=== PATIENT | male | born 1950 | race Caucasian/White ===

== ENCOUNTER 2017-06-20 09:20 | Day surgery (SDC) | payer MEDICARE, OTHER ==
[~2017-06-20 09:20] MED LIST: Lactated Ringers 1,000 ML IV SCH; Lidocaine 1% 4 ML ONE; Lidocaine 1%/Sod Bicarbonate in NS 8.4% 1 ML Syringe IDERM PRN; Propofol 200 MG/20 ML SDV ONE; Sodium Chloride 0.9% 10 ML Syringe FLUSH PRN
--- NOTE | 2017-06-20 09:32 | PCM.PREANE ---
Preanesthetic Assessment - Anesthesia/Transfusion/Family Hx Anesthesia History: Prior Anesthesia Without Reaction Family History of Anesthesia Reaction: No Transfusion History: No Prior Transfusion(s) Intubation History: Unknown - Review of Systems General: No Symptoms Pulmonary: No Symptoms Cardiovascular: No Symptoms Gastrointestinal: No Symptoms (GERD on occasion.) Neurological: No Symptoms (History of vertigo), Numbness (right chronic numbness on right foot (bottom)) Other: Reports: Sinus Problem (Allergic rhinitis) - Physical Assessment NPO Status Date: 06/19/17 NPO Status Time: 23:00 Pulse: 62 O2 Sat by Pulse Oximetry: 97 Respiratory Rate: 16 Blood Pressure: 128/82 Temperature: 36.7 C Height: 1.91 m Weight: 89.811 kg ASA Class: 1 Mental Status: Alert & Oriented x3 Airway Class: Mallampati = 3 Dentition: Reports: Implants (front/top), Caries Thyro-Mental Finger Breadths: 3 Mouth Opening Finger Breadths: 3 ROM/Head Extension: Full Lungs: Clear to Auscultation, Normal Respiratory Effort Cardiovascular: Regular Rate, Regular Rhythm, No Murmurs - Allergies Allergies/Adverse Reactions: Allergies Allergy/AdvReac Type Severity Reaction Status Date / Time No Known Allergies Allergy Verified 06/19/17 13:22 - Anesthesia Plan Pre-Op Medication Ordered: None - Acknowledgements Anesthesia Type Planned: MAC Pt an Appropriate Candidate for the Planned Anesthesia: Yes Alternatives and Risks of Anesthesia Discussed w Pt/Guardian: Yes Pt/Guardian Understands and Agrees with Anesthesia Plan: Yes PreAnesthesia Questionnaire HEENT History: Reports: Allergic Rhinitis, Impaired Vision, Other (See Below) Other HEENT History: wears glasses, cerumen impaction Cardiovascular History: Reports: None Respiratory History: Reports: None Gastrointestinal History: Genitourinary History: Reports: None 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 Musculoskeletal History: Reports: None Neurological History: Reports: None Psychiatric History: Reports: None Endocrine/Metabolic History: Reports: None Hematologic History: Reports: None Immunologic History: Reports: None Oncologic (Cancer) History: Reports: None Dermatologic History: Reports: None - Past Surgical History Head Surgeries/Procedures: Reports: None Cardiovascular Surgical History: Reports: None Respiratory Surgical History: Reports: None GI Surgical History: Reports: Colonoscopy, Hernia, Inguinal Female Surgical History: Reports: None Male Surgical History: Reports: Vasectomy Endocrine Surgical History: Reports: None Neurological Surgical History: Reports: None Musculoskeletal Surgical History: Reports: None Dermatological Surgical History: Reports: None - SUBSTANCE USE Smoking Status *Q: Former Smoker Recreational Drug Use History: No - HOME MEDS Home Medications: Home Meds Loratadine [Claritin] 10 mg PO DAILY PRN 06/19/17 [History] - CURRENT (IN HOUSE) MEDS Current Meds: Current Medications Lactated Ringer's (Ringers, Lactated) 1,000 mls @ 125 mls/hr IV ASDIRECTED PHOEBE Stop: 06/20/17 23:00 Lidocaine/Sodium Bicarbonate (Buffered Lidocaine 1% In Ns 8.4%) 0.25 ml IDERM ONETIME PRN PRN Reason: Prior to IV Start Stop: 06/20/17 18:00 Sodium Chloride (Saline Flush) 10 ml FLUSH ASDIRECTED PRN PRN Reason: Keep Vein Open Stop: 06/20/17 18:00 Discontinued Medications Lidocaine HCl (Xylocaine-Mpf 1%) Confirm Administered Dose 4 mls @ as directed .ROUTE .STK-MED ONE Stop: 06/20/17 08:53 Propofol (Diprivan 20 Ml) Confirm Administered Dose 400 mg .ROUTE .STK-MED ONE Stop: 06/20/17 08:54
--- NOTE | 2017-06-20 10:35 | PCM48HPAN ---
Post Anesthesia Note - EVALUATION WITHIN 48HRS OF ANESTHETIC Vital Signs in Normal Range: Yes Patient Participated in Evaluation: Yes Respiratory Function Stable: Yes Airway Patent: Yes Cardiovascular Function Stable: Yes Hydration Status Stable: Yes Pain Control Satisfactory: Yes Nausea and Vomiting Control Satisfactory: Yes Mental Status Recovered: Yes Pulse Rate: 61 SaO2: 97 Resp Rate: 16 Temperature: 36.3 C Blood Pressure: 96/71
--- NOTE | 2017-06-20 10:44 | PCM.OPNOTE ---
- General Post-Op/Procedure Note Date of Surgery/Procedure: 06/20/17 Operative Procedure(s): Colonoscopy with cold forceps polypectomy of the transverse sigmoid and rectum Findings: 3 diminutive polyps in the areas above. Pre Op Diagnosis: Screening colonoscopy Post-Op Diagnosis: Multiple colon polyps Anesthesia Technique: MAC, Moderate Sedation Primary Surgeon: Chintan Denton Pathology: Descending sigmoid and rectal polyp all less than 6 mm EBL in mLs: 0 Complications: None Condition: Good Free Text/Narrative:: After adequate IV sedation and analgesia was obtained with monitoring the patient was placed on his left side. Perianal inspection and digital rectal examination were performed next and were unremarkable. A lubricated colonoscope was inserted into the rectum and advanced to the cecum without difficulty. The bowel preparation was poor. The cecum right colon transverse colons were endoscopically normal with no mass lesions. The descending had a diminutive polyp at about 60 cm which was removed with cold forceps. The sigmoid had thickened musculature and had a polyp at about 30 cm which was removed with cold forceps as well. And the rectum had a diminutive polyp was also removed with cold forceps. The retroflexed rectal view was unremarkable. Photographs weren't obtained because of technical difficulties. The patient tolerated the procedure well. I recommended to the patient that he have a follow-up colonoscopy for surveillance in one year because of the 3 polyps.
== END 2017-06-20 11:14 | disposition home or self-care (01) ==
LOC: JD.SDS 09:20
PROVIDERS: ATTEND Surgery
DX: Z12.11 Encounter for screening for malignant neoplasm of colon (principal); K63.5 Polyp of colon
CPT/HCPCS: 45380; J7120; 00812; J2704

== ENCOUNTER 2018-01-04 16:24 | Emergency (ER) | payer MEDICARE, OTHER ==
--- NOTE | 2018-01-04 17:39 | EDM.PDOC ---
ED HPI GENERAL MEDICAL PROBLEM - General Source of Information: Reports: Patient History Limitations: Reports: No Limitations. 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 He fell from a standing position and hit his left christianity on an iron disc, causing a laceration of his skin. He reports he was "dazed" for about three minutes after the injury, but denies loss of consciousness. His family reports he has been acting normally and has no alterations in mental status or awareness. He does report a headache which has decreased in intensity since initial onset after the fall and is described as 2-3/10 in severity. He denies nausea or vomiting, confusion, and change in vision. No use of blood- thinning medications. No recent illnesses. 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 Musculoskeletal History: Reports: None Neurological History: Reports: None Psychiatric History: Reports: None Endocrine/Metabolic History: Reports: None Hematologic History: Reports: None Immunologic History: Reports: None Oncologic (Cancer) History: Reports: Malignant Melanoma Dermatologic History: Reports: None - Past Surgical History Head Surgeries/Procedures: Reports: None Cardiovascular Surgical History: Reports: None Respiratory Surgical History: Reports: None GI Surgical History: Reports: Colonoscopy, Hernia, Inguinal Male Surgical History: Reports: Prostate Biopsy, Vasectomy Endocrine Surgical History: Reports: None Neurological Surgical History: Reports: None Musculoskeletal Surgical History: Reports: None Dermatological Surgical History: Reports: None <Verena Huynh - Last Filed: 01/04/18 17:49> Social & Family History - Tobacco Use Smoking Status *Q: Never Smoker - Caffeine Use Caffeine Use: Reports: Coffee - Recreational Drug Use Recreational Drug Use: No <Verena Huynh - Last Filed: 01/04/18 17:49> ED ROS GENERAL - Review of Systems Constitutional: Reports: No Symptoms HEENT: Reports: No Symptoms, Other (left jaw pain). Denies: Vision Change Respiratory: Reports: No Symptoms Cardiovascular: Reports: No Symptoms GI/Abdominal: Reports: No Symptoms Musculoskeletal: Reports: No Symptoms Skin: Reports: Wound Neurological: Reports: Headache. Denies: Confusion, Dizziness, Syncope, Trouble Speaking Psychiatric: Reports: No Symptoms <Verena Huynh - Last Filed: 01/04/18 17:49> - Review of Systems Review Of Systems: See Below <Tammie Armas - Last Filed: 01/04/18 18:54> ED EXAM, HEAD INJURY - Physical Exam Exam Limited By: No Limitations General Appearance: Alert, No Apparent Distress Head: Facial Lacerations (1.5 linear, longitudinal laceration at left christianity. Wound is clean with no debris. Wound edges are approximated. ), Facial Swelling (mild swelling of left christianity around site of laceration/contusion), Facial Tenderness (tenderness to palpation of left christianity) Nexus Criteria: No: Posterior, Midline Cervical Tenderness, Evidence of Intoxication, Altered Level of Consciousness, Focal Neurological Deficit, Painful Distraction Injuries Eyes: Bilateral Eye: EOMI, Normal Inspection, PERRL Ears: Normal External Exam, Hearing Grossly Normal Nose: Normal Inspection Throat/Mouth: Normal Inspection. No: Dental Trauma Neck: Non-Tender, Full Range of Motion, Normal Inspection Respiratory: No Respiratory Distress, Lungs Clear, Normal Breath Sounds, Chest Non-Tender Cardiovascular: Normal Peripheral Pulses, Regular Rate, Rhythm, No Murmur Back Exam: Normal Inspection, Full Range of Motion. 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 (Amina,Verena) Course <Verena Huynh - Last Filed: 01/04/18 17:49> <Tammie Armas - Last Filed: 01/04/18 18:54> - Vital Signs Last Recorded V/S: Last Vital Signs Temp 37.1 C 01/04/18 16:31 Pulse 64 01/04/18 16:31 Resp 18 01/04/18 16:31 BP 127/78 01/04/18 16:31 Pulse Ox 95 01/04/18 16:31 - Re-Assessments/Exams Free Text/Narrative Re-Assessment/Exam: 01/04/18 18:52 Headache rapidly improving, no LOC, no vomiting, normal mental status/ neurological exam. Discussed risks/benefits of CT imaging with patient and family and we agreed that CT was highly unlikely to provide any useful diagnostic information. Discussed need for observation for a couple of more hours and concussion precautions/need for f/u. Discussed strict ED return precautions. Patient and family understood. Wound is completely approximated without intervention, will reinforce with steri-strips. (Tammie Armas) Departure - Departure Time of Disposition: 17:33 - Discharge Information *PRESCRIPTION DRUG MONITORING PROGRAM REVIEWED*: Not Applicable *COPY OF PRESCRIPTION DRUG MONITORING REPORT IN PATIENT CAROLINE: Not Applicable <Verena Huynh - Last Filed: 01/04/18 17:49> <Tammie Armas - Last Filed: 01/04/18 18:54> - Departure Disposition: Home, Self-Care 01 Clinical Impression: Concussion with no loss of consciousness, Scalp laceration - Discharge Information Instructions: Head Injury, Adult, Nonsutured Laceration Care Referrals: Denae Aguero NP [Primary Care Provider] - Forms: ED Department Discharge Additional Instructions: 1. Keep wound clean and dry; wash gently. Ok to alternate Tylenol and ibuprofen as needed for pain and inflammation. Use cold ice pack as needed for pain/ swelling. 2. Follow up with primary care provider as needed 3. Return to the ED if you experience altered mental status, increasing headache , seizure, or any other concerning symptoms.
== END 2018-01-04 17:56 | disposition home or self-care (01) ==
LOC: JD.ED 16:24
DX: S06.0X0A Concussion without loss of consciousness, initial encounter (principal); S01.01XA Laceration without foreign body of scalp, initial encounter; Z79.899 Other long term (current) drug therapy; W18.39XA Other fall on same level, initial encounter; Y99.0 Civilian activity done for income or pay
CPT/HCPCS: 99283

== ENCOUNTER 2018-10-02 08:49 | Day surgery (SDC) | payer MEDICARE, OTHER ==
[~2018-10-02 08:49] MED LIST changes: +Midazolam 1 MG/ML 2 ML SDV ONE; +fentaNYL 100 MCG/2 ML SDV ONE
--- NOTE | 2018-10-02 09:11 | PCM.PREANE ---
Preanesthetic Assessment - Procedure Proposed Procedure: screening colonoscopy - Anesthesia/Transfusion/Family Hx Anesthesia History: Prior Anesthesia Without Reaction Family History of Anesthesia Reaction: No Transfusion History: No Prior Transfusion(s) Intubation History: Unknown - Review of Systems General: No Symptoms Pulmonary: No Symptoms Cardiovascular: No Symptoms Gastrointestinal: No Symptoms Neurological: No Symptoms Other: Reports: None - Physical Assessment NPO Status Date: 10/02/18 NPO Status Time: 04:00 Pulse: 58 O2 Sat by Pulse Oximetry: 96 Respiratory Rate: 16 Blood Pressure: 122/77 Temperature: 97.6 F Height: 6 ft 3 in Weight: 87.906 kg ASA Class: 1 Mental Status: Alert & Oriented x3 Airway Class: Mallampati = 1 Dentition: Reports: Normal Dentition Thyro-Mental Finger Breadths: 3 Mouth Opening Finger Breadths: 3 ROM/Head Extension: Full Lungs: Clear to Auscultation, Normal Respiratory Effort Cardiovascular: Regular Rate, Regular Rhythm - Allergies Allergies/Adverse Reactions: Allergies Allergy/AdvReac Type Severity Reaction Status Date / Time No Known Allergies Allergy Verified 10/01/18 10:17 - Blood Blood Available: No - Acknowledgements Anesthesia Type Planned: MAC Pt an Appropriate Candidate for the Planned Anesthesia: Yes Alternatives and Risks of Anesthesia Discussed w Pt/Guardian: Yes Pt/Guardian Understands and Agrees with Anesthesia Plan: Yes PreAnesthesia Questionnaire HEENT History: Reports: Allergic Rhinitis, Impaired Vision Other HEENT History: Impacted cerumen Cardiovascular History: Reports: None Respiratory History: Reports: None Gastrointestinal History: Reports: None Genitourinary History: Reports: None 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 Musculoskeletal History: Reports: None Neurological History: Reports: None Psychiatric History: Reports: None Endocrine/Metabolic History: Reports: None Hematologic History: Reports: None Immunologic History: Reports: None Oncologic (Cancer) History: Reports: Malignant Melanoma Dermatologic History: Reports: Melanoma - Infectious Disease History Infectious Disease History: Reports: None - Past Surgical History Head Surgeries/Procedures: Reports: None HEENT Surgical History: Reports: None Cardiovascular Surgical History: Reports: None Respiratory Surgical History: Reports: None GI Surgical History: Reports: Hernia, Inguinal Male Surgical History: Reports: Vasectomy Endocrine Surgical History: Reports: None Neurological Surgical History: Reports: None Musculoskeletal Surgical History: Reports: None Oncologic Surgical History: Reports: None - SUBSTANCE USE Smoking Status *Q: Never Smoker Tobacco Use Within Last Twelve Months: No Second Hand Smoke Exposure: No Days Per Week of Alcohol Use: 2 Number of Drinks Per Day: 1 Total Drinks Per Week: 2 Recreational Drug Use History: No - HOME MEDS Home Medications: Home Meds Loratadine [Claritin] 10 mg PO DAILY PRN 06/19/17 [History] Multivitamin [Daily Multiple Vitamin] 1 tab PO DAILY 10/01/18 [History] - CURRENT (IN HOUSE) MEDS Current Meds: Current Medications Lactated Ringer's (Ringers, Lactated) 1,000 mls @ 125 mls/hr IV ASDIRECTED PHOEBE Stop: 10/02/18 23:00 Lidocaine/Sodium Bicarbonate (Buffered Lidocaine 1% In Ns 8.4%) 0.25 ml IDERM ONETIME PRN PRN Reason: Prior to IV Start Stop: 10/02/18 18:00 Sodium Chloride (Saline Flush) 10 ml FLUSH ASDIRECTED PRN PRN Reason: Keep Vein Open Stop: 10/02/18 18:00 Discontinued Medications Fentanyl (Sublimaze) Confirm Administered Dose 100 mcg .ROUTE .STK-MED ONE Stop: 10/02/18 07:31 Lidocaine HCl (Xylocaine-Mpf 1%) Confirm Administered Dose 4 mls @ as directed .ROUTE .STK-MED ONE Stop: 10/02/18 07:31 Midazolam HCl (Versed 1 Mg/Ml) Confirm Administered Dose 2 mg .ROUTE .STK-MED ONE Stop: 10/02/18 07:31 Propofol (Diprivan 20 Ml) Confirm Administered Dose 400 mg .ROUTE .STK-MED ONE Stop: 10/02/18 07:31
--- NOTE | 2018-10-02 10:07 | PCM48HPAN ---
Post Anesthesia Note - EVALUATION WITHIN 48HRS OF ANESTHETIC Vital Signs in Normal Range: Yes Patient Participated in Evaluation: Yes Respiratory Function Stable: Yes Airway Patent: Yes Cardiovascular Function Stable: Yes Hydration Status Stable: Yes Pain Control Satisfactory: Yes Nausea and Vomiting Control Satisfactory: Yes Mental Status Recovered: Yes Pulse Rate: 56 SaO2: 91 Resp Rate: 14 Temperature: 97.4 F Blood Pressure: 93/62
--- NOTE | 2018-10-02 14:15 | OR ---
DATE OF OPERATION: 10/02/2018 SURGEON: Tom Virk MD PREOPERATIVE DIAGNOSIS: Colorectal cancer screening. POSTOPERATIVE DIAGNOSIS: Colorectal cancer screening. OPERATION PERFORMED: Screening colonoscopy and snare polypectomy and polypectomy. ANESTHESIA: Monitored anesthesia care. PATHOLOGY: 1. Sigmoid colon polyp. 2. Cecal polyp. 3. Ascending colon polyp. 4. Transverse colon polyp. 5. Rectosigmoid colon polyp. FINDINGS: He had 5 polyps, all somewhat diminutive, less than 1 cm; 2 were removed with a snare, 1 in the sigmoid and 1 in the rectosigmoid junction. The remainder of the polyps were removed in their entirety with a biopsy forceps. He had an excellent bowel prep. DISPOSITION: Stable at the end of procedure. ESTIMATED BLOOD LOSS: Minimal. COMPLICATIONS: None. INDICATION: Chino is a 68-year-old male, referred for colorectal cancer screening. He had a scope just a year ago, but had a poor prep and so he did not get a good exam. Three hyperplastic polyps were removed at that time. He has no family history. He was offered a screening colonoscopy per the standard of care. He was fully informed of the major risks, benefits, and alternatives. The risks would include, but not limited to perforation of the colon, bleeding, risks of anesthesia, and the possibility of further surgery. He gave informed consent of what was done. DESCRIPTION OF PROCEDURE: Chino was brought to the gastro suite and placed in the left lateral decubitus position. He was given monitored anesthesia. A digital rectal exam was performed. This was unremarkable. With copious lubrication, I introduced the colonoscope into the rectum. I advanced the scope to the cecum, keeping the lumen in view at all times with gentle forward pressure. I documented the cecum photographically. I slowly investigated the mucosa of the colon from the cecum back to the anus in an exam lasting 14 minutes. I encountered several polyps on the way in. The sigmoid colon polyp was identified and removed with a snare with electrocautery. Once in the cecum, I identified an additional diminutive polyp, which was removed with biopsy forceps. I continued my exam and identified an ascending colon polyp, which was also removed with a biopsy forceps in its entirety. A transverse colon polyp was also identified, and this was removed with biopsy forceps. When I reached his rectosigmoid junction, I identified an additional somewhat sessile polyp at the rectosigmoid junction. This was removed with a snare with electrocautery. The remainder of his exam was unremarkable. At the end of the procedure, the scope was withdrawn. He had no complications and tolerated the procedure well. PLAN: My office will notify him as to the date of his next colonoscopy. RANDI /[id number]
== END 2018-10-02 11:10 | disposition home or self-care (01) ==
LOC: JD.SDS 08:49
PROVIDERS: ATTEND Surgery
DX: Z12.11 Encounter for screening for malignant neoplasm of colon (principal); D12.7 Benign neoplasm of rectosigmoid junction; D12.0 Benign neoplasm of cecum; K63.5 Polyp of colon; J30.9 Allergic rhinitis, unspecified; C43.4 Malignant melanoma of scalp and neck
CPT/HCPCS: 00812; J2001; J2250; J2704; J3010; J7120

== ENCOUNTER 2021-09-06 06:56 | Day surgery (SDC) | payer MEDICARE, OTHER ==
[~2021-09-06 06:56] MED LIST changes: -Lidocaine 1% 4 ML ONE; -Midazolam 1 MG/ML 2 ML SDV ONE; -Propofol 200 MG/20 ML SDV ONE; +Sodium Chloride 0.9% 10 ML Syringe FLUSH SCH; -fentaNYL 100 MCG/2 ML SDV ONE
[2021-09-06] MEDS ORDERED: Lidocaine 1% 4 ML ONE (07:20)
[2021-09-06] MEDS ORDERED: Propofol 200 MG/20 ML SDV ONE ×3 (07:20→08:19)
== END 2021-09-06 09:27 | disposition home or self-care (01) ==
LOC: JD.SDS 06:56
PROVIDERS: ATTEND Surgery
DX: Z12.11 Encounter for screening for malignant neoplasm of colon (principal); D12.0 Benign neoplasm of cecum; K62.1 Rectal polyp; K63.3 Ulcer of intestine; K64.8 Other hemorrhoids; E78.00 Pure hypercholesterolemia, unspecified; Z79.899 Other long term (current) drug therapy; Z98.890 Other specified postprocedural states
CPT/HCPCS: 45380; 45385; J2704; J7120; 00812

== ENCOUNTER 2024-12-30 09:14 | Day surgery (SDC) | payer MEDICARE, OTHER ==
[~2024-12-30 09:14] MED LIST changes: +Dexamethasone 4 MG/ML 5 ML MDV ONE; +Ketamine HCL/NACL, ISO-OSM 50 MG/5 ML Syringe ONE; -Lactated Ringers 1,000 ML IV SCH; -Lidocaine 1%/Sod Bicarbonate in NS 8.4% 1 ML Syringe IDERM PRN; +Ondansetron 4 MG/2 ML SDV ONE; +Propofol 200 MG/20 ML SDV ONE; +dexmedeTOMIDine HCl 200 MCG/2 ML SDV ONE; +fentaNYL 250 MCG/5 ML SDV ONE
[2024-12-30] MEDS: Lactated Ringers 1,000 ML IV SCH (09:45)
[2024-12-30] MEDS ORDERED: ePHEDrine 50 MG/ML SDV ONE (09:59)
[2024-12-30] MEDS ORDERED: Lactated Ringers 1,000 ML ONE (10:17)
[2024-12-30] MEDS ORDERED: Phenylephrine 1% 10 MG/ML SDV ONE (10:45)
[2024-12-30] MEDS: EPINEPHrine 1 MG/ML SDV ONE (10:52)
== END 2024-12-30 14:20 | disposition home or self-care (01) ==
LOC: JD.SDS 09:14
PROVIDERS: ATTEND Surgery
DX: K40.90 Unilateral inguinal hernia, without obstruction or gangrene, not specified as recurrent (principal); Z79.899 Other long term (current) drug therapy
CPT/HCPCS: 49505; 93005; C1781; J0169; J0665; J0690; J1100; J2371; J2405; J2704; J3010; J7120; J3490